=== PATIENT | male | born 1995 | race Two or more races ===

== ENCOUNTER 2025-02-03 11:10 | Emergency (ER) | payer MEDICAID, SELFPAY ==
[2025-02-03 11:35] VITALS: BP 119/75; PULSE 69; RESP 18; TEMP 36.9; O2SAT 99
--- NOTE | 2025-02-03 11:39 | PD.EDRME ---
Rapid Medical Screening Exam [facility] Arrival date/time: 02/03/25 11:10 29-year-old male with no significant medical problems presents for concerns for rectal bleeding. Patient reports after he passes a stool there is blood in the toilet. Patient reports symptom started yesterday patient does report drinking heavily over the weekend does not drink every day Chief Complaint: General Adult/Misc Complain Time Seen by Provider: 02/03/25 11:25 Vital signs: Vital Signs Temperature 98.5 F 02/03/25 11:35 Pulse Rate 69 02/03/25 11:35 Respiratory Rate 18 02/03/25 11:35 Blood Pressure 119/75 02/03/25 11:35 Pulse Oximetry (%) 99 02/03/25 11:35 Oxygen Delivery Method Room Air 02/03/25 11:35
[2025-02-03 12:36] LABS: Basophils % (Auto) 1 % (0-2.5); Eosinophils % (Auto) 1 % (0-10); Hemoglobin 14.2 g/dL (13.5-16.0); Immature Granulocytes % (Auto) 0 % (0-0); Immature Granulocytes Auto 0.01 Thou/mm3 (0.00-0.00); Lymphocytes # (Auto) 0.8 Thou/mm3 (1.0-4.8); Lymphocytes % (Auto) 14 % (10-50); Mean Corpuscular HGB Conc 34.6 g/dl (31.0-37.0); Mean Corpuscular Volume 87 fL (80-100); Monocytes # (Auto) 0.4 Thou/mm3 (0.0-0.8); Monocytes % (Auto) 6 % (0-12); Neutrophils # (Auto) 4.6 Thou/mm3 (1.8-7.7); Neutrophils % (Auto) 78 % (37-80); Nucleated Red Blood Cell % 0 /100 WBC (0); Platelet Count 218 Thou/mm3 (140-440); RDW Standard Deviation 40.6 fL (35.1-43.9); Red Blood Count 4.73 Miln/mm3 (4.50-5.90); White Blood Count 5.8 Thou/mm3 (3.8-10.6)
[2025-02-03 12:48] LABS: Partial Thromboplastin Time 26.3 Seconds (22.0-36.0); Prothrombin Time 10.5 Seconds (9.0-12.2)
[2025-02-03 12:58] LABS: Alanine Aminotransferase 82 U/L (10-49); Albumin, Serum 4.1 gm/dL (3.5-5.0); Albumin/Globulin Ratio 1.2 (1.2-2.2); Alkaline Phosphatase 107 U/L (46-116); Anion Gap 6 (7-16); Aspartate Amino Transferase 59 U/L (0-34); BUN/Creatinine Ratio 14 Ratio (12-20); Bilirubin,Total 0.4 mg/dL (0.3-1.2); Blood Urea Nitrogen 11 mg/dL (9-23); Carbon Dioxide 27.7 mMol/L (20.0-31.0); Chloride 102 mMol/L (98-107); Creatinine (Component) 0.8 mg/dL (0.6-1.3); Globulin 3.3 gm/dL (2.3-3.5); Glucose 95 mg/dL (74-106); Lipase 33 U/L (12-53); Osmolality,Calculated 271 (275-295); Potassium 4.2 mMol/L (3.4-5.1); Sodium 136 mMol/L (136-145); Total Protein 7.4 gm/dL (5.7-8.2); eGFR > 60 See Note
[2025-02-03 15:16] VITALS: BP 143/80; PULSE 63; RESP 18; TEMP 37.2; O2SAT 98
--- NOTE | 2025-02-03 15:19 | PD.EDADULT ---
ED General RME/HPI General Chief complaint: General Adult/Misc Complain Stated complaint: BRIGHT RED STOOL SINCE 02/02/25, YESTERDAY Time Seen by Provider: 02/03/25 11:25 Arrival date/time: 02/03/25 11:10 29-year-old male with no significant medical problems presents for concerns for rectal bleeding. Patient reports after he passes a stool there is blood in the toilet. Patient reports symptom started yesterday patient does report drinking heavily over the weekend does not drink every day. There are no other associated symptoms or aggravating factors no other modifying factors, patient denies taking medication before coming to ER today Limitations: no limitations RME / HPI RME / HPI narrative: 02/03/25 11:10 29-year-old male with no significant medical problems presents for concerns for rectal bleeding. Patient reports after he passes a stool there is blood in the toilet. Patient reports symptom started yesterday patient does report drinking heavily over the weekend does not drink every day Related Data Previous Rx's ?Medication ?Instructions ?Recorded pantoprazole 40 mg tablet,delayed 40 mg PO QDAY #30 tabs 02/03/25 release (Protonix) Allergies Allergy/AdvReac Type Severity Reaction Status Date / Time No Known Allergies Allergy Verified 02/03/25 11:14 Review of Systems Review of Systems Systems Reviewed: All systems reviewed, normal except as documented Constitutional Constitutional: Reports system reviewed and no additional complaints, except as documented, Denies fever(s) and Denies headache(s) Eyes Eyes: Reports system reviewed and no additional complaints, except as documented and Denies blurry vision ENT Ears, Nose, Mouth, and Throat: Reports system reviewed and no additional complaints, except as documented, Denies headache(s), Denies nasal congestion and Denies nasal discharge Cardiovascular Cardiovascular: Reports system reviewed and no additional complaints, except as documented, Denies chest pain and Denies dyspnea Respiratory Respiratory: Reports system reviewed and no additional complaints, except as documented, Denies chest congestion, Denies cough and Denies dyspnea Gastrointestinal Gastrointestinal: Reports system reviewed and no additional complaints, except as documented, Denies abdominal pain, Denies hematemesis, Reports hematochezia, Denies loose stools, Denies melena and Denies nausea Integumentary/Breasts Skin/Breast: Reports system reviewed and no additional complaints, except as documented and Denies rash Neurologic Neurologic: Reports system reviewed and no additional complaints, except as documented, Reports as per HPI and Denies headache(s) Past Medical History Social History SMOKING STATUS: Former smoker ED Exam General Limitations: Present no limitations General appearance: Present alert and in no apparent distress Head Head exam: Present atraumatic Eye Eye exam: Present normal appearance, PERRL and EOMI ENT ENT exam: Present normal exam, normal oropharynx and mucous membranes moist Neck Neck exam: Present normal inspection, full ROM and trachea midline Chest Chest inspection: Present normal inspection and symmetric chest wall rise Respiratory Respiratory exam: Present normal lung sounds bilaterally Cardiovascular Cardiovascular exam: Present regular rate, normal rhythm and normal heart sounds Abdominal Exam Abdominal exam: Present soft and normal bowel sounds Extremities Exam Extremities exam: Present normal inspection and full ROM Back Exam Back exam: Present normal inspection and full ROM Neurological Exam Neurological exam: Present alert, oriented X3 and CN II-XII intact Psychiatric Psychiatric exam: Present normal affect and normal mood Skin Skin exam: Present warm, dry, intact and normal color Course Quality Measures none Orders Category Date Time Status CBC Stat Lab 02/03/25 12:00 Completed Comprehensive Metabolic Panel Stat Lab 02/03/25 12:00 Completed Lipase Stat Lab 02/03/25 12:00 Completed Partial Thromboplastin Time Stat Lab 02/03/25 12:00 Completed Prothrombin Time with INR Stat Lab 02/03/25 12:00 Completed Vital Signs Vital signs: Vital Signs Temperature 98.5 F 02/03/25 11:35 Pulse Rate 69 02/03/25 11:35 Respiratory Rate 18 02/03/25 11:35 Blood Pressure 119/75 02/03/25 11:35 Pulse Oximetry (%) 99 02/03/25 11:35 Oxygen Delivery Method Room Air 02/03/25 11:35 O2 saturation 99% on room air within normal limits MDM Patient data External records reviewed:: [facility] previous records Clinical information provided by:: patient Social determinants that could affect healthcare access:: none Patient has the following chronic illnesses:: None How is presenting disease/condition affected by chronic disease/condition?: no chronic disease Evaluation data The following diagnostics were reviewed and interpreted by me:: lab results Lab and/or radiology exams considered but not ordered:: Lab obtained Interpretation Summary: Reviewed by me Medications Medications considered but not ordered:: Rx given Medication administrations:: Rx given Consultations Consultation(s) initiated? (list below): No Diagnosis Differential Diagnosis ED Complaint MDM: Rectal bleeding, internal hemorrhoid, external hemorrhoid Most likely diagnosis given after review of the tests above:: Rectal bleeding Admission Indicated Admission indicated?: not indicated Explain why admission is indicated or not indicated:: No criteria Admission Request Was there a request for admission?: No Disposition Plan Disposition Plan: Discharge Discharge Attestation Discharge Attestation: The patient and all family members were given an opportunity to ask questions and understood the discharge instructions. Discharge instructions specifically effects, indications for sooner follow up or return to the emergency department, and the expected course of current diagnosis. Patient condition: Stable Medical Decision Making MDM Narrative MDM Narrative: 29-year-old male with no significant medical problems presents for concerns for rectal bleeding. Patient reports after he passes a stool there is blood in the toilet. Patient reports symptom started yesterday patient does report drinking heavily over the weekend does not drink every day. There are no other associated symptoms or aggravating factors no other modifying factors, patient denies taking medication before coming to ER today On exam patient is hemodynamically stable patient does not appear ill or toxic Hemoglobin within normal limits lab work unremarkable Explained to the patient he must follow-up with PCP and or get referral to specialist for worsening symptoms return immediately I did explain to the patient if he has increased bleeding or develops any pain to return immediately Differential Diagnosis Differential Diagnosis: Rectal bleeding, internal hemorrhoid, external hemorrhoid Medical Records Medical records reviewed: Yes I reviewed the patient's medical records. Lab Data Lab results reviewed: Yes I reviewed the patient's lab results. 02/03/25 12:00 02/03/25 12:00 Labs: Lab Results 02/03/25 Range/Units 12:00 WBC 5.8 (3.8-10.6) Thou/mm3 RBC 4.73 (4.50-5.90) Miln/mm3 Hgb 14.2 (13.5-16.0) g/dL Hct 41.0 (41.0-53.0) % MCV 87 (80-100) fL MCH 30.0 (25.0-35.0) pg MCHC 34.6 (31.0-37.0) g/dl RDW Std Deviation 40.6 (35.1-43.9) fL Plt Count 218 (140-440) Thou/mm3 Neut % (Auto) 78 (37-80) % Lymph % (Auto) 14 (10-50) % [place] % (Auto) 6 (0-12) % Eos % (Auto) 1 (0-10) % Baso % (Auto) 1 (0-2.5) % Neut # (Auto) 4.6 (1.8-7.7) Thou/mm3 Lymph # (Auto) 0.8 L (1.0-4.8) Thou/mm3 [place] # (Auto) 0.4 (0.0-0.8) Thou/mm3 Eos # (Auto) 0.0 (0.0-0.5) Thou/mm3 Baso # (Auto) 0.0 (0.0-0.2) Thou/mm3 Immature Gran # (Auto) 0.01 H (0.00-0.00) Thou/mm3 Absolute Nucleated RBC 0.00 (0.00-0.00) Thou/mm3 Immature Gran % 0 (0-0) % Nucleated RBC % 0 (0) /100 WBC PT 10.5 (9.0-12.2) Seconds INR 1.0 (0.9-1.3) APTT 26.3 (22.0-36.0) Seconds Sodium 136 (136-145) mMol/L Potassium 4.2 (3.4-5.1) mMol/L Chloride 102 (98-107) mMol/L Carbon Dioxide 27.7 (20.0-31.0) mMol/L Anion Gap 6 L (7-16) BUN 11 (9-23) mg/dL Creatinine 0.8 (0.6-1.3) mg/dL Estim Creat Clear Calc Not Performed. eGFR > 60 (60 - ) See Note BUN/Creatinine Ratio 14 (12-20) Ratio Glucose 95 (74-106) mg/dL Calculated Osmolality 271 L (275-295) Calcium 9.0 (8.3-10.6) mg/dL Corrected Calcium 9.0 (8.5-10.1) mg/dL Total Bilirubin 0.4 (0.3-1.2) mg/dL AST 59 H (0-34) U/L ALT 82 H (10-49) U/L Alkaline Phosphatase 107 (46-116) U/L Total Protein 7.4 (5.7-8.2) gm/dL Albumin 4.1 (3.5-5.0) gm/dL Globulin 3.3 (2.3-3.5) gm/dL Albumin/Globulin Ratio 1.2 (1.2-2.2) Lipase 33 (12-53) U/L Discharge Plan Plan Patient Disposition: HOME (Self Care) Disposition Comment: Stable Prescriptions/Referrals Prescriptions/Med Rec: New pantoprazole [Protonix] 40 mg tablet,delayed release (DR/EC) 40 mg PO QDAY Qty: 30 0RF Referrals: No Primary/Family,Physician [Primary Care Provider] - 02/04/25 Problem List Clinical Impression: Blood in stool Patient/Caregiver Discharge Instructions Education Materials: Anatomy of the Digestive System Additional Instructions: Please refrain from alcohol use Please follow-up with your PCP and or get referral to GI specialist to make colonoscopy or endoscopy for further workup. If you have increased bleeding or pain please return immediately Print Language: Arabic Stand Alone Forms: [place] Award Info., Work/School Release, Patient Portal Info Letter PA/[employer] Supervising Physician YUE/RICARDO Supervising Physician: dr [email or web address]
== END 2025-02-03 15:59 | disposition home or self-care (01) ==
PROVIDERS: Nurse Practitioner Primary Care; Emergency Provider Family Medicine
DX: K92.1 Melena (principal)
CPT/HCPCS: 36415; 80053; 83690; 85025; 85610; 85730; 99283